=== PATIENT | female | born 1950 | race Caucasian/White ===

== ENCOUNTER 2021-09-09 23:24 | Emergency (ER) | payer OTHER ==
[2021-09-09 23:42] VITALS: BP 147/78; PULSE 89; TEMP 98.9; BMI 27.1
[2021-09-10] MEDS ORDERED: diazePAM CARPU-JECT 10 MG/2 ML DISP.SYRIN ONE (00:03)
[2021-09-10] MEDS ORDERED: PROPOFOL 20 ML ONE (00:23)
[2021-09-10] MEDS ORDERED: ONDANSETRON 4 MG/2 ML VIAL ONE (00:39)
[2021-09-10] MEDS ORDERED: ONDANSETRON 4 MG/2 ML VIAL IVPB ONE (00:41)
[2021-09-10] MEDS ORDERED: diazePAM CARPU-JECT 10 MG/2 ML DISP.SYRIN IVPUSH ONE (01:11)
[2021-09-10] MEDS ORDERED: ACETAMINOPHEN 1000 MG/100 ML BAG IVPB ONE (01:31)
[2021-09-10] MEDS ORDERED: ACETAMINOPHEN INJECTION 100 ML IVPB ONE (01:32)
== END 2021-09-10 02:31 | disposition home or self-care (01) ==
LOC: JER 23:24
PROC: 3E0333Z Introduction of Anti-inflammatory into Peripheral Vein, Percutaneous Approach (ICD-10-PCS; principal; 2021-09-09)
PROC: 3E033NZ Introduction of Analgesics, Hypnotics, Sedatives into Peripheral Vein, Percutaneous Approach (ICD-10-PCS; 2021-09-09)
PROC: 3E033GC Introduction of Other Therapeutic Substance into Peripheral Vein, Percutaneous Approach (ICD-10-PCS; 2021-09-09)
DX: S03.00XA Dislocation of jaw, unspecified side, initial encounter (principal); Y99.9 Unspecified external cause status
CPT/HCPCS: 99285-25